=== PATIENT | female | born 1995 | race Caucasian/White ===

== ENCOUNTER 2025-06-26 08:23 | Outpatient (AMB) | payer OTHER, SELFPAY ==
--- NOTE | 2025-06-26 08:27 | A.OFFPC_ITS ---
Vital Signs 06/26/25 08:30 Height 5 ft 7 in Weight 161 lb 2 oz BMI 25.2 BP 100/70 Blood Pressure Location Lt brachial Position Sitting Pulse 76 Pulse Source Pulse Oximeter Temp 97.3 F Temp Source Temporal Artery Scan Pulse Oximetry (%) 98 Oxygen Delivery Method Room Air Intake Visit Reasons: establish [facility] Allergies No Known Allergies Allergy (Verified 06/26/25 08:27) Tobacco use date assessed: 06/26/25 Dental Screening Dental Screen Date: 06/26/25 HPI HPI Comments History of Present Illness Details The patient is a 30-year-old female presenting to [facility]. Patient reports history of ADHD diagnosed as a child, for which she is not currently on any medications is managing well. She has a surgical history of a left knee operation in August 2008 for a torn cartilage. She has an IUD for contraception and reports no other active medications. She sees an SOLUTIONS DEVELOPMENT ANALYST regularly, with her last visit in December 2024 and reports her last Pap was August 2024. She brings in her vaccination records and that include Tdap, Hepatitis B, yellow fever, and meningococcal vaccines. The patient lives alone. She smokes marijuana a couple of times a week and consumes approximately three alcoholic drinks per week. She denies any other smoking or recreational drug use. Denies history of blood transfusions or new sexual partners. She reports no known family history of diseases. Patient requesting completion of a medical form for a student visa application to [employer]. 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 She feels overall well, no concerning symptoms. [facility] Family History (Updated 06/26/25 @ 08:33 by Alyse Aguiar MA) Mother No problems noted. Father No problems noted. Other ADHD Social History Housing: Apartment Patient Tobacco Use Status: Never used Tobacco Tobacco use type: Cigarette e-Cigarette/Vaping Use: Never Used Second Hand Smoke Exposure: No service: No Current occupational status: employed Current occupation: Teacher Cognitive needs: No Hearing needs: No Vision needs: No Questionnaire PHQ-9 Over the last 2 weeks, how often have you been bothered by any of the following problems? 1. Little interest or pleasure in doing things: not at all 2. Feeling down, depressed, or hopeless: not at all 3. Trouble falling or staying asleep, or sleeping too much: not at all 4. Feeling tired or having little energy: not at all 5. Poor appetite or overeating: not at all 6. Feeling bad about yourself - or that you are a failure or have let yourself or your family down: not at all 7. Trouble concentrating on things, such as reading the newspaper or watching television: not at all 8. Moving or speaking so slowly that other people could have noticed. Or the opposite - being so fidgety or restless that you have been moving around a lot more than usual: not at all 9. Thoughts that you would be better off or of hurting yourself in some way: not at all Total score: 0 Source: Developed by Drs. Wilbert Carcamo, Alicja Jimenez, Isaac Daily and colleagues, with an educational trinh from [employer]. Thrive Questionnaire Date Thrive assessed: 06/26/25 I am a: Patient What is your living situation today?: I have a steady place to live Within the past 12 months, did the food you bought not last and you didn't have the money to get more?: Never true Within the past 12 months, did you worry whether your food would run out before you got money to buy more?: Never true Do you have trouble paying for medicines?: No Do you have trouble getting transportation to medical appointments?: No Do you have trouble paying your heating and electricity bill?: No Do you have trouble taking care of your child, family member or friend?: No Do you have trouble with day-to-day activities such as bathing, preparing meals, shopping, managing finances, etc.?: No Are you currently unemployed and looking for a job?: No Are you interested in more education?: No Please select the resources that you would like help with: None Currently or been in a relationship where the following occur: I choose not to answer THRIVE Score: 0 AUDIT C Alcohol Use Questionnaire (AUDIT-C) 1. How often do you have a drink containing alcohol?: 2-4 times a month 2. How many drinks containing alcohol do you have on a typical day when you are drinking?: 3 or 4 3. How often do you have six or more drinks on one occasion?: Less than monthly Total Score: 4 NEHA-7 AMB Questionnaire NEHA-7 Date NEHA - 7 assessed: 06/26/25 Feeling nervous, anxious, or on edge: 0 = Not at all Not being able to stop or control worryin = Not at all Worrying too much about different things: 0 = Not at all Trouble relaxin = Not at all Being so restless that it is hard to sit still: 0 = Not at all Becoming easily annoyed or irritable: 0 = Not at all Feeling afraid as if something awful might happen: 0 = Not at all Total NEHA-7 score (0-4 normal; 5-9 mild; 10-14 moderate; 15-21 severe): 0 Source: Developed by Drs. Wilbert Carcamo, Alicja Jimenez, Isaac Daily and colleagues, with an educational trinh from [employer]. Physical exam (Primary Care) Vital Signs: Last Vital Signs Temp 97.3 F 06/26/25 08:30 Pulse 76 06/26/25 08:30 BP 100/70 06/26/25 08:30 Pulse Ox 98 06/26/25 08:30 Oxygen Delivery Method Room Air 06/26/25 08:30 General: Well-appearing, alert, oriented ?3, in no acute distress. HEENT: Normocephalic, atraumatic, PERRLA, EOMI, no scleral icterus. External ears normal, tympanic membranes intact bilaterally, no erythema or effusion. Nares patent, normal mucosa pink, no discharge. No oral lesions, or pharyngeal erythema. Neck Supple. Cardiovascular: RRR, S1-S2 appreciated, no murmurs, rubs or gallops. Respiratory: Lungs clear to auscultation bilaterally, no wheezes, rales or rhonchi. Abdomen: Soft, nontender, nondistended. Normoactive bowel sounds. MSK: Normal range of motion in all extremities, no joint swelling or deformity. Neurologic: Alert and oriented X3, cranial nerves II?XII grossly intact, sensation and strength intact in bilateral lower and upper extremities. Psychiatry: Normal mood and affect. Appropriate behavior, good eye contact. BMI result Body Mass Index 25.2 Tobacco/Smoking Status: Tobacco use Status Tobacco use date assessed 06/26/25 06/26/25 08:29 Patient Tobacco Use Status Never used Tobacco 06/26/25 08:35 Tobacco use type Cigarette 06/26/25 08:35 e-Cigarette/Vaping Use Never Used 06/26/25 08:35 PHQ-9: PHQ-9 Score PHQ-9: Total score 0 06/26/25 08:29 Thrive Assessment: Date of Thrive Assessment Date Thrive assessed 06/26/25 06/26/25 08:29 Currently or been in a relationship where the following occur: I choose not to answer Coding Level of Care Code New Pt Level 4 (16216) Diagnoses Establishing care with new doctor, encounter for Z76.89 Attention deficit hyperactivity disorder (ADHD), unspecified ADHD type F90.9 Attention deficit-hyperactivity disorder type: unspecified IUD (intrauterine device) in place Z97.5 Screening for HIV (human immunodeficiency virus) Z11.4 Encounter for HCV screening test for low risk patient Z11.59 Assessment & Plan Assessment & Plan (1) Establishing care with new doctor, encounter for: Code(s): Z76.89 - Persons encountering health services in other specified circumstances Plan: Patient presenting to establish care Obtain blood work (2) ADHD: Code(s): F90.9 - Attention-deficit hyperactivity disorder, unspecified type Category: Medical Qualifiers: Attention deficit-hyperactivity disorder type: unspecified Qualified Code(s): F90.9 - Attention-deficit hyperactivity disorder, unspecified type Plan: Patient reports history of ADHD diagnosed as a child, for which she is not currently on any medication is managing well. Does not feel she needs to see a therapist at this time. (3) IUD (intrauterine device) in place: Code(s): Z97.5 - Presence of (intrauterine) contraceptive device Category: Social Hx Plan: Patient reports having IUD in place. Follows with OBGYN yearly and gets Pap smear with them. (4) Screening for HIV (human immunodeficiency virus): Code(s): Z11.4 - Encounter for screening for human immunodeficiency virus [HIV] Plan: Due for HIV screening (5) Encounter for HCV screening test for low risk patient: Code(s): Z11.59 - Encounter for screening for other viral diseases Plan: Due for hep C screening. Denies history personal hep C. Denies history of blood transfusions or new sexual partners. Orders: Orders Complete Blood Count Auto Diff Today Z00.00 - Encounter for general adult medical examination without abnormal findings Comprehensive [place]. Panel Fast Today Z00.00 - Encounter for general adult medical examination without abnormal findings Lipid Panel with Reflex Today Z00.00 - Encounter for general adult medical examination without abnormal findings HIV Ab/Ag Today Z11.4 - Encounter for screening for human immunodeficiency virus [HIV] Hepatitis C Antibody Reflex Today Z11.59 - Encounter for screening for other viral diseases
[2025-06-26 08:30] VITALS: BP 100/70; PULSE 76; TEMP 36.3; O2SAT 98; BMI 25.2
== END 2025-06-26 08:56 | disposition home or self-care (01) ==
LOC: HO.HMCH 08:24
PROVIDERS: PCP Student in an Organized Health Care Education/Training Program; Visit Provider Student in an Organized Health Care Education/Training Program
DX: Z76.89 Persons encountering health services in other specified circumstances (principal); F90.9 Attention-deficit hyperactivity disorder, unspecified type; Z97.5 Presence of (intrauterine) contraceptive device; Z11.4 Encounter for screening for human immunodeficiency virus [HIV]; Z11.59 Encounter for screening for other viral diseases

== ENCOUNTER 2025-07-01 08:09 | Outpatient (REF) | payer OTHER, SELFPAY ==
--- OUTSIDE RECORDS SUMMARY | 2025-07-01 08:13 | XMS_ITS | Encounter Summary ---
Author Organization [facility] Address [address] [place] [id number] Phone Care Team Providers Care Data Center Solutions Architect Name Role Phone Unknown, Unknown Primary Care Provider Venecia jenkins Reason for Visit * Reason Onset Date Comments Visa Paperwork 06/14/2025 Encounter Details Date Type Department Care Team (Late st Contact Info) Description 06/14/2025 Telephone [facility] [address] [place] [address] Referring, Not Required Visa Paperwork Social History Tobacco Use Types Packs/Day Years Used Date Smoking Tobacco: Never Passive Smoke Exposure: Never Smokeless Tobacco: Never Alcohol Use Standard Drinks/Week Comments Yes 0 (1 standard drink = 0.6 oz pur e alcohol) Education Answer Date Recorded Are you interested in more education? Not on [place] e 12/05/2022 Are you concerned about learning? Not on file 12/05/2022 No 12/05/2022 No 12/05/2022 Digital Access Answer Date Recorded No 01/02/2023 No 01/02/2023 Reliable internet access at home? Not on file 01/02/2023 Device with a working camera? Not on file Comments No Sex and Gender Information Value Date Recorded Sex Assigned at Female 05/26/2019 9:27 AM EDT Legal Sex Female 8:54 PM EDT Gender Identity Female 05/26/2019 9:27 AM EDT Sexual Orientation Choose not to disclose 2018 9:27 AM EDT documented as of this encounter Progress Notes * Lior Lockett LPN - 06/16/2025 11:54 AM EST Sw pt, who states that she was aware of the message through the portal. * Lior Lockett LPN - 06/16/2025 11:53 AM EST Images from the original note were not included. Selma johnson MD to Sc RP 06/16/25 11:52 AM I am not aware of what the regulations are for this- tests may be needed (for example TB) or vaccines There may still be a [facility] medical office in [place], she can try them It is not within my scope of medical practice to assess health requirements for a visa, I am sorry I doubt this is something anyone at urgent care knows either, she can all and ask Regards, Selma Thurston MD she/her * Lior Lockett LPN - 06/16/2025 11:48 AM EST Pt is not currently established with a PCP. Is this something she could get through an urgent care ? * Lior Lockett LPN - 06/16/2025 11:48 AM EST Images from the original note were not included. Selma Thurston MD to g Obgyn Alvaro RP 06/16/25 11:43 AM Requests for VISA health verifications should go to her pCP, not senior search marketing analyst, thanks * Lorrie Piedra LPN - 06/15/2025 7:38 AM EST Message to pt's provider Dr. Thurston to review. If provider feels ths cannot be completed by INFORMATION SECURITY CONSULTANT provider, pt can get physical at [facility] * Priiclla Durham - 06/14/2025 4:57 PM EST Patient called asking if her MD could fill out a VISA form her to travel stating she is healthy. PT does not know if she needs a PCP in order to get this filled out. Pt currently not established with a PCP. I advised pt to upload a picture of it to the portal and to ask as well for us to review documented in this encounter Plan of Treatment Not on file documented as of this encounter Visit Diagnoses Not on filedocumented in this encounter Care Teams Data Center Solutions Architect Relationship Specialty Start Date End Date Unknown, Unknown, PCP - General 05/26/19 documented as of this encounter Additional Source Comments The information contained in this document represents components of the legal health record. It is not the complete legal health record.[facility]
--- OUTSIDE RECORDS SUMMARY | 2025-07-01 08:13 | XMS_ITS | Clinical Summary ---
Author Organization [facility] Address [address] [facility] [address] [place] [id number] Phone Care Team Providers Care Buffing And Polishing Wheel Repairer Name Role Phone Unknown, Unknown Primary Care Provider Unavai lable Allergies No known active allergies Medications levonorgestreL (KYLEENA) 17.5 mcg/24 hrs (5 yrs) 19.5 mg intrauterine device 1 Device by Intrauterine route Once every 5 years. 0 Active ALPRAZolam (XANAX) 1 MG tablet Take 1 tablet (1 mg total) by mouth once for 1 dose. No driving 1 tablet 4 Active Hospital, Clinic, or Other Facility Administered Medication Ordered Dose Route Frequency Start Date End Date Status levonorgestreL (KYLEENA) 17.5 mcg/24 hr (5 yrs) 19.5 mg intrauterine device 1 each 1 each Utrn Every 5 years 07/27/2024 Active Active Problems Problem Noted Date Diagnosed Date Encounter for contraceptive management 4 Overview (07/27/2024): Kyleena placed in 2019, replaced in Jul 2024 Assessment & Plan (10/09/2023 12:08 PM EST): Replacement due early 2024, offered option of preprocedure prescription for an opioid plus benzodiazepine, and paracervical block at the time as she recalls significant pain with initial insertion History of human papilloma virus 03/10/2022 Overview (03/10/2022): Per pt: [facility] 2019 HPV/? Abnormal pap; colposcopy with nl findings per her report with possible repeat testing in 202003/10/22 pap/HPV screen done, advised to sign record release for review of previous results Assessment & Plan (03/10/2022 3:06 PM EDT): We reviewed history per Marko's recollection; encouraged to sign record release and explained that pap follow up will occur per ASCCP guidelines pending review of prior and current results. Encounters Date Type Department Care Team Description 06/16/2025 Telephone [facility] [address] [place] [address] Quang Flores MD Appointment 06/14/2025 Telephone [facility] [address] [place] [address] Referring, Not Required Visa Paperwork from Last 3 Months Immunizations Immunization Administration Dates Next Due COVID-19 (Pre-06/01) Moderna Vaccine, mRNA, PF 0 10/02/2020,09/04/2020 Family History Medical History Relation Comments Hypertension Father Hypertension Mother Relation Status Comments Father Mother Social History Tobacco Use Types Packs/Day Years [...] not to disclose 2018 9:27 AM EDT Last Filed Vital Signs Vital Sign Reading Time Taken Comments Blood Pressure 112/68 02/07/2025 11:59 AM EDT Pulse 80 05/26/2019 3:03 PM EDT Temperature 36.4 C (97.5 F) 05/26/2019 3:03 PM EDT Respiratory Rate 19 05/26/2019 3:03 PM EDT Oxygen Saturation 99% 05/26/2019 3:03 PM EDT Inhaled Oxygen Concentration - - Weight 70.8 kg (156 lb) 02/07/2025 11:59 AM EDT Height 170.2 cm (5' 7 ) 02/07/2025 11:59 AM EDT Body Mass Index 24.43 02/07/2025 11:59 AM EDT Plan of Treatment Health Maintenance Due Date Last Done Comments Adult Td,Tdap Booster 1994 DEPRESSION SCREENING 2006 INFLUENZA VACCINE (#1) 2025 PAP SMEAR 03/10/2025 03/10/2022 COVID-19 VACCINE (2024- season) 2025 07/22/2021, 10/02/2020, 09/04/2020 IUD 07/27/2029 07/27/2024 SMOKING STATUS SCREENING (Once After 26 Yrs) Completed 07/27/2024 HEPATITIS C SCREENING Completed 02/09/2025 , 02/09/2025, 08/09/2024, Additional history exists HIV ONE-TIME SCREENING (18-65 YEARS) Completed 02/09/2025 HEPATITIS A VACCINES Aged Out No long er eligible based on patient's age to complete this topic HIB VACCINES Aged Out No longer eligi ble based on patient's age to complete this topic IPV VACCINES Aged Out No longer eligi ble based on patient's age to complete this topic MENINGOCOCCAL VACCINES (ACWY) Aged Out No longer eligible based on patient's age to complete this topic MENINGOCOCCAL VACCINES (B) Aged Out N o longer eligible based on patient's age to complete this topic PNEUMOCOCCAL VACCINES (0-49 years) Aged Out No longer eligible based on patient's age to complete this topic Medical Devices Implanted Type Area Cardiac Care Nurse Device Identifier Shelf Expiration Date Model / Serial / Lot Iud Implanted: (Quantity not on file) Intrauterine Device Procedures Procedure Name Priority Date/Time Associated Diagnosis Comments HEPATITIS C ANTIBODY, QUALITATIVE Routine 02/09/2025 3:34 PM EDT Screen for STD (sexually transmitted disease) PAP TEST Routine 03/10/2022 12:00 AM EDT from Last 3 Months or Most Recently Relevant to Health Maintenance Results * Hepatitis C antibody, qualitative (02/09/2025 3:34 PM EDT) HCV NON-REACTIV E NON-REACTI VE [facility] Blood 02/09/2025 3:34 PM EDT 02/09/2025 3:39 PM EDT us Selma Thurston MD LAB BLOOD BKR ORDERABLES Final R esult [address] [address] * Pap Smear (03/10/2022 12:00 AM EDT) 03/10/2022 03/11/2022 10: 01 AM EDT Narrative SEE NARRATIVE - 03/13/2022 2:51 PM EDT [address] [address] Geothermal Field Technician: Marisel Cobb MD RUG CUTTER HELPER Cytology Report FINAL DIAGNOSIS A. PAP SMEAR (SUREPATH) CE: SPECIMEN ADEQUACY: Satisfactory for evaluation; transformation zone present. INTERPRETATION: NEGATIVE FOR INTRAEPITHELIAL LESION OR MALIGNANCY. Reactive changes. Electronically Signed Out By: MD Jackie Ward CT(ASCP) By his/her signature above, the pathologist listed as making the Final Diagnosis certifies that he/she has personally reviewed this case and confirmed or corrected the diagnosis. The Pap test is a screening test primarily for squamous cancers and precursors and has associated false-negative and false-positive results. New technologies such as liquid-based preparations may decrease but will not eliminate all false-negative results. Regular sampling and follow-up of unexplained clinical signs and symptoms are recommended to minimize false negative results. PROCEDURES/ADDENDA HPV Testing (Requested) Ordered Date: 03/11/2022 A. PAP SMEAR (SUREPATH) CE: Human Papilloma Virus Test Negative for high-risk human papillomavirus types 16, 18, 45 and the Other high risk probe set (Includes 31, 33, 35, 39, 51, 52, 56, 58, 59, 66, 68) by [employer] Onclarity HR-HPV analysis. Clinical correlation is advised. This HPV test was performed at [facility], [address] [place] [address]. This test has been FDA approved for SurePath cervical cytology specimens. The accuracy and precision of this test for all other specimen sources has been verified in the Cytopathology Laboratory of the [facility] and has not been cleared or approved by the U.S. Food and Drug Administration. Clinical correlation is advised. CLINICAL HISTORY Date of Last Menstrual Period: Not Provided Menstrual History: Unknown Contraceptive History: IUD Other Clinical Conditions: Screening Pap SPECIMEN SOURCE A: PAP SMEAR (SUREPATH) CE Patient Name: JUAN MIGUEL NICOLASA : 1995 (Age: 26) Sex: F Institution: [facility] Location: [facility] Date of Collection: 03/10/2022 Date of Reported: 03/13/2022 14:51 Results to: Milagro Rosas MSN, BS Milagro Rosas TIRE ASSEMBLER CYTOLOGY ORDERABLES Final Resu lt SEE NARRATIVE from Last 3 Months or Most Recently Relevant to Health Maintenance Insurance [facility] EPO [facility] EPO [facility] EPO [facility] EPO Care Teams Buffing And Polishing Wheel Repairer Relationship Specialty Start Date End Date Unknown, Unknown, PCP - General 05/26/19 Additional Source Comments The information contained in this document represents components of the legal health record. It is not the complete legal health record.[facility]
[2025-07-01 08:41] LABS: MANUAL DIFF FLAG NO
[2025-07-01 09:14] LABS: Hematocrit 38.8 % (37.0-47.0); Hemoglobin 13.3 g/dl (12.0-16.0); Imm Gran Abs Auto 0.01 X10*3/uL (0.00-0.03); Imm Gran Pct Auto 0.1 % (0.0-0.4); Lymphocytes Absolute Auto 1.8 X10*3/uL (1.2-4.9); Mean Corpuscular HGB Conc 34.3 g/dl (31.0-35.0); Mean Corpuscular Hemoglobin 32.4 pg (27.0-33.0); Mean Corpuscular Volume 94.6 fL (80.0-98.0); NRBC Abs Auto 0.000 X10*3/uL (0.0-0.012); NRBC Pct Auto 0.0 /100WBC (0.0-0.2); Platelet Count 282 X10*3/uL (160-400); Red Blood Count 4.10 X10*6/uL (4.20-5.50); White Blood Count 7.6 X10*3/uL (4.8-10.8)
[2025-07-01 10:01] LABS: Alanine Aminotransferase 13 U/L (0-31); Albumin Level 4.6 g/dL (3.5-5.0); Alkaline Phosphatase 66 U/L (39-117); Anion Gap 16 (12-20); Aspartate Amino Transferase 17 U/L (5-31); Blood Urea Nitrogen 7 mg/dL (9-16); Calcium 9.1 mg/dL (8.4-10.2); Carbon Dioxide 24 mmol/L (22-29); Chloride 106 mmol/L (96-108); Cholesterol 161 mg/dL (<200); Estimated Glomerular Filt Rate > 60; HDL Cholesterol 66 mg/dL (>40); Potassium 4.0 mmol/L (3.3-5.1); Sodium 142 mmol/L (135-145); Total Protein 7.2 g/dL (6.5-8.0); Triglycerides 107 mg/dL (<150)
[2025-07-01 10:11] LABS: HIV Num 1 0.07 S/CO (0.00-0.99); ~HepC Num1 0.05 S/CO (0.00-0.79); ~Hepatitis C Antibody Nonreactive (Nonreactive)
[2025-07-01 10:35] LABS: Reflex LDLD? No
== END 2025-07-01 08:10 | disposition home or self-care (01) ==
LOC: HO.LAB 08:09
PROVIDERS: PCP Student in an Organized Health Care Education/Training Program; Visit Provider Student in an Organized Health Care Education/Training Program
DX: Z00.00 Encounter for general adult medical examination without abnormal findings (principal); Z11.4 Encounter for screening for human immunodeficiency virus [HIV]; Z11.59 Encounter for screening for other viral diseases; Z13.6 Encounter for screening for cardiovascular disorders
CPT/HCPCS: 36415; 80053; 80061; 85025; 86803; 87389